=== PATIENT | female | born 1975 | race Caucasian/White ===

== ENCOUNTER → 2024-11-30 11:50 | Outpatient (REF) | payer BC, SELFPAY | LOC: HWWDC 11:50 | DX: Z12.31 Encounter for screening mammogram for malignant neoplasm of breast (principal) | CPT/HCPCS: 77063; 77067 ==

== ENCOUNTER → 2025-03-15 11:00 | Outpatient (REF) | payer BC, SELFPAY | LOC: WDC 11:00 | DX: R92.333 Mammographic heterogeneous density, bilateral breasts (principal) | CPT/HCPCS: 76641 ==